=== PATIENT | male | born 1995 | race Caucasian/White ===

== ENCOUNTER 2023-02-06 15:20 | Emergency (ER) | payer OTHER ==
[~2023-02-06] VITALS: Ht 172.7 cm; Wt 76.2 kg
--- NOTE | 2023-02-06 15:41 | NUR ---
[id number] FROM [place]. PT STATES "I NEED MEDS FOR MY MONKEY POX AND PSYCH MEDS". PT DENIES SI OR HI. DENIES TAKING ANY DRUGS. PT AMBULATED TO ASSIGNED BED WITH STEADY GAIT, BREATHING EVEN AND UNLABORED.
--- NOTE | 2023-02-06 15:44 | NUR ---
ATTEMPTED TO OBTAIN A URINE SAMPLE, PT ADMITS TO FILLING THE SAMPLE CUP WITH WATER "BECAUSE NOTHING IS COMING OUT".
[2023-02-06] MEDS ORDERED: OLANZAPINE 5 MG TABLET ONE (15:55)
[2023-02-06] MEDS ORDERED: OLANZAPINE 5 MG TABLET PO ONE (16:00)
[2023-02-06] MEDS ORDERED: LORAZEPAM 1 MG TABLET ONE (16:28)
[2023-02-06] MEDS ORDERED: LORAZEPAM 1 MG TABLET PO ONE (16:30)
[2023-02-06 16:53] LABS: BASOPHILS % (AUTO) 0.3 % (0.0-2.0); EOSINOPHILS % (AUTO) 0.3 % (0.0-6.0); HEMATOCRIT 39 % (39-51); LYMPHOCYTES # (AUTO) 1.6 K/uL (0.8-4.8); MEAN CORPUSCULAR HGB CONC 34 g/dl (31.0-36.0); MEAN CORPUSCULAR VOLUME 91 fL (80-96); MONOCYTES # (AUTO) 0.9 K/uL (0.1-1.30); MONOCYTES % (AUTO) 9.2 % (2.0-12.0); NEUTROPHILS # (AUTO) 7.4 K/uL (1.8-8.9); NEUTROPHILS % (AUTO) 74.2 % (43.0-81.0); PLATELET COUNT (AUTO) 219 K/uL (150-450); RED BLOOD CELL COUNT(AUTO) 4.23 MIL/uL (4.5-6.0)
[2023-02-06 17:04] LABS: CALCIUM, SERUM 9.2 mg/dL (8.5-10.1); CARBON DIOXIDE 21 mmol/L (21-32); CHLORIDE 102 mmol/L (98-107); CREATININE 1.3 mg/dL (0.6-1.3); GLUCOSE 95 mg/dL (74-106); POTASSIUM 3.6 mmol/L (3.5-5.1); SODIUM SERUM 139 mmol/L (136-145); UREA NITROGEN, BLOOD 14 mg/dL (7-18)
[2023-02-06 17:09] LABS: ALANINE AMINOTRANSFERASE 77 U/L (12-78); ALBUMIN 4.3 g/dL (3.4-5.0); ALKALINE PHOSPHATASE 79 U/L (46-116); ASPARTATE AMINOTRANSFERASE 47 U/L (15-37); BILIRUBIN,DIRECT 0.5 mg/dL (0.0-0.2); BILIRUBIN,TOTAL 2.4 mg/dL (0.2-1.0); TOTAL PROTEIN, SERUM 7.4 g/dL (6.4-8.2)
[2023-02-06 17:11] LABS: ALCOHOL, BLOOD < 3 mg/dL (0-10)
[2023-02-06] MEDS ORDERED: OLAN10TA3 PO (21:22)
--- NOTE | 2023-02-06 22:14 | NUR ---
Patient discharged to home in stable condition. Written and verbal after care instructions given. Patient verbalizes understanding of instruction. Patient ambulatory
[2023-02-06 22:20] VITALS: BP 145/74
== END 2023-02-06 22:23 | disposition home or self-care (01) ==
LOC: ER 15:23
DX: F20.9 Schizophrenia, unspecified (principal); F15.10 Other stimulant abuse, uncomplicated; F22 Delusional disorders; Z59.00 Homelessness unspecified
CPT/HCPCS: 36415; 80048-TC; 80076-TC; 85025-TC; G0480